=== PATIENT | male | born 1960 | race African-American/Black ===

== ENCOUNTER 2017-12-04 06:11 | Emergency (ER) | payer MEDICAID ==
[~2017-12-04] VITALS: Ht 172.7 cm; Wt 84.0 kg
[2017-12-04] MEDS ORDERED: ACETAMINOPHEN 325MG TABLET PO ONE (07:00)
[2017-12-04 08:18] VITALS: BP 110/68
== END 2017-12-04 08:20 | disposition home or self-care (01) ==
LOC: ER 06:11
DX: M51.36 Other intervertebral disc degeneration, lumbar region (principal); I10 Essential (primary) hypertension; F17.200 Nicotine dependence, unspecified, uncomplicated; Z90.49 Acquired absence of other specified parts of digestive tract
CPT/HCPCS: 72100; 99284; Z7610